=== PATIENT | female | born 1995 | race Caucasian/White ===

== ENCOUNTER 2018-08-03 23:38 | Emergency (ER) | payer OTHER ==
[~2018-08-03] VITALS: Ht 157.5 cm; Wt 56.8 kg
[2018-08-03 23:42] VITALS: BP 120/63; TEMP 98.7
[2018-08-03] MEDS ORDERED: ZOLOFT 50MG50 MG PO (23:52)
[2018-08-04 00:34] VITALS: PULSE 80
== END 2018-08-04 00:35 | disposition home or self-care (01) ==
LOC: COL.ER 23:38
DX: S01.81XA Laceration without foreign body of other part of head, initial encounter (principal); F41.9 Anxiety disorder, unspecified; W10.9XXA Fall (on) (from) unspecified stairs and steps, initial encounter; W22.8XXA Striking against or struck by other objects, initial encounter

== ENCOUNTER 2018-08-09 18:19 | Emergency (ER) | payer OTHER ==
[~2018-08-09 18:19] MED LIST: ZOLOFT 50MG50 MG PO
[2018-08-09 18:31] VITALS: BP 103/61; PULSE 86; TEMP 97.8
== END 2018-08-09 18:40 | disposition home or self-care (01) ==
LOC: COL.ER 18:19
DX: S01.81XD Laceration without foreign body of other part of head, subsequent encounter (principal)